=== PATIENT | female | born 1990 | race Caucasian/White ===

== ENCOUNTER 2021-09-06 10:19 | Inpatient (IN) | payer BC ==
[~2021-09-06] VITALS: Ht 162.6 cm; Wt 97.3 kg
[2021-09-07] VITALS (26 sets, daily range): BP systolic 99–138; BP diastolic 60–94; PULSE 68–96; TEMP 97.8–98.6
--- NOTE | 2021-09-07 06:50 | NUR ---
pt ambulatory onto unit with spouse. FHR monitor/TOCO applied. Pt denies any vaginal bleeding, decreased movement, regular contractions or leaking of fluid. IOL and plan of care discussed. pt verbalizes understanding. Call light within reach
[2021-09-07 07:42] LABS: BASO % 0.2 % (0.0-2.0); EOS # 0.1 K/mm3 (0.0-0.7); GRAN # 8.2 K/mm3 (1.4-6.5); GRAN % 77.7 % (42.2-75.2); HEMATOCRIT 37.8 % (37.0-47.0); HEMOGLOBIN 12.6 g/dl (12.5-16.0); LYMPH # 1.4 K/mm3 (1.2-3.4); MEAN CELL VOLUME 93 fl (80.0-100.0); MEAN CORPUSCULAR HEMOGLOBIN 31 pg (27-31); MEAN CORPUSCULAR HGB CONC 33 g/dl (33.0-37.0); MONO # 0.8 K/mm3 (0.1-0.6); MONO % 7.6 % (1.7-9.3); PLATELET COUNT 271 K/mm3 (130-400); RED BLOOD COUNT 4.07 M/mm3 (4.10-5.30); REDCELL DISTRIBUTION WIDTH-CV 13.7 % (11.5-14.5)
--- NOTE | 2021-09-07 11:33 | NUR ---
1017 Dr Rochelle MCKEON /-1. 1017-delivery Dr. Byrd on unit reviewing FHR strip 1110 Dr Rochelle MCKEON /+2. Setting up for delivery. Tobar removed. 1123 Dr. Byrd, Amarilys Sharma Rn and this Rn in room. patient begins pushing with contractions 1127 Spontaneous vaginal delivery of viable female . bulb suctioned and stimulated. Cord clamped by Dr Byrd and cut by FOB. Infant to mother's chest. A nathaniel Rn takes over care of infant. 1133 Spontaneous delivery of placenta. Pitocin bolus started per protocol. Perineal laceration repaired by Dr. Byrd. Fundal massage done. Firm/midline. Small amt of bleeding noted. Plan of care discussed. pt verbalizes understanding. Call light within reach
[2021-09-07] MEDS ORDERED: MOTRIN 800800 MG/TAB PO (11:47)
--- NOTE | 2021-09-07 18:25 | NUR ---
Report recieved. Sitting up in bed and holding infant. POC reviewed and whiteboard updated.
[2021-09-08 02:00] VITALS: BP 124/79; PULSE 90; TEMP 97.4
[2021-09-08 07:00] VITALS: BP 118/79; PULSE 89; TEMP 97.6
--- NOTE | 2021-09-08 09:25 | NUR ---
Initial visit; Patient thanked Travel Journalist for offering congratulation and God's blessings for the of her daughter. Travel Journalist thanked patient for choosing [facility].
[2021-09-08 11:25] VITALS: BP 106/65; PULSE 63; TEMP 97.7
--- NOTE | 2021-09-08 13:37 | NUR ---
DISCHARGE TEACHING COMPLETED. EDUCATED ON FOLLOW UP APPOINTMENT AND PRESCRIPTIONS. QUESTIONS INVITED AND ANSWERED.
== END 2021-09-08 14:00 | disposition home or self-care (01) | DRG 807 ==
LOC: LDR 09-07 06:27 → OB 09-07 06:27 → LDR 09-07 06:47 → OB 09-07 14:30
PROVIDERS: ADMIT Obstetrics & Gynecology
PROC: 10E0XZZ Delivery of Products of Conception, External Approach (ICD-10-PCS; principal; 2021-09-07)
PROC: 0KQM0ZZ Repair Perineum Muscle, Open Approach (ICD-10-PCS; 2021-09-07)
PROC: 3E033VJ Introduction of Other Hormone into Peripheral Vein, Percutaneous Approach (ICD-10-PCS; 2021-09-07)
PROC: 10907ZC Drainage of Amniotic Fluid, Therapeutic from Products of Conception, Via Natural or Artificial Opening (ICD-10-PCS; 2021-09-07)
PROC: 0UQMXZZ Repair Vulva, External Approach (ICD-10-PCS; 2021-09-07)
DX: O48.0 Post-term pregnancy (principal); Z37.0 Single live birth; O99.214 Obesity complicating childbirth; O70.1 Second degree perineal laceration during delivery; O71.82 Other specified trauma to perineum and vulva; Z3A.40 40 weeks gestation of pregnancy
CPT/HCPCS: J2590; J2795; J7120